=== PATIENT | male | born 1980 | race Two or more races ===

== ENCOUNTER 2018-12-15 10:20 | Emergency (ER) | payer OTHER ==
[2018-12-15 10:28] VITALS: BMI 25.7
[2018-12-15] MEDS ORDERED: DIPHTH,PERTUSS(ACELL),TET 0.5 ML DISP.SYRIN IM ONE ×2 (10:33→12:18)
[2018-12-15] MEDS ORDERED: ACETAMINOPHEN 1000 MG/100 ML VIAL (NON FORMULARY) IVPB ONE (10:33)
[2018-12-15] MEDS ORDERED: SODIUM CHLORIDE 0.9% 500 ML INFUS.BAG IV ONE (10:34)
[2018-12-15] MEDS ORDERED: ceFAZolin 2 GRAM PREMIX BAG IVPB STA (10:42)
[2018-12-15] MEDS ORDERED: morphine CARPU-JECT 4 MG/1 ML DISP.SYRIN IVPUSH ONE (10:43)
--- NOTE | 2018-12-15 11:05 | PDOC ---
History of Present Illness - General Chief Complaint: Injury Stated Complaint: LT MIDDLE FINGER INJURY Time Seen by Provider: 12/15/18 10:31 History Source: Patient Exam Limitations: No Limitations - History of Present Illness Initial Comments: 12/15/18 11:09 38YOM without PMH who notes a 400 lb crate crushed and pinned his 1st-3rd fingers on the non-dominant hand just [employer] while at work. He notes having lost less than a small cup of blood and there was no pulsatile bleeding. He notes being able to feel the tip of the fingers but the middle finger has been degloved from the bones. He additionally notes having tingling-type pain to the 1st-3rd fingers as well as bruising to the fingertips of the thumb and middle finger, and the distal forearm. Does not recall the date of his last tetanus immunization. He denies falling, hitting his head, losing consciousness, or any other injury or bodily pain. Past History - Past Medical History Allergies/Adverse Reactions: Allergies Allergy/AdvReac Type Severity Reaction Status Date / Time No Known Allergies Allergy Verified 12/15/18 10:29 COPD: No - Suicide/Smoking/Psychosocial Hx Smoking History: Never smoked Information on smoking cessation initiated: No Hx Alcohol Use: No Drug/Substance Use Hx: No Review of Systems - Review of Systems Able to Perform ROS?: Yes Comments:: 12/15/18 11:18 GEN: no fever, chills, malaise, generalized weakness, or weight change HEENT: no ear pain, sore throat, vision change, or eye pain CV: no chest pain, palpitations, lightheadedness, syncope, or edema RESP: no cough, wheezing, or SOB GI: no abdominal pain, nausea, vomiting, diarrhea, constipation, or white/black/ bloody stool : no dysuria, hematuria, incontinence, retention, bleeding, or discharge MSK: left thumb and finger injuries, no neck/back pain, muscle weakness/pain, or joint swelling/pain NEURO: finger tingling, no headache, seizure, vertigo, numbness, or focal weakness PSYCH: no substance use, no behavior change SKIN: finger injuries, no jaundice, no rash ROS otherwise negative except as noted in HPI *Physical Exam - Vital Signs Last Vital Signs Temp Pulse Resp BP Pulse Ox 98 F 90 19 129/89 100 12/15/18 10:27 12/15/18 10:27 12/15/18 10:27 12/15/18 10:27 12/15/18 10:27 - Physical Exam Comments: 12/15/18 11:19 GENERAL: well-appearing, A/Ox4, no distress, answers questions appropriately HEENT: PERRLA, EOMI, moist mucous membranes NECK/BACK: no midline ttp, no spinal stepoff or deformity, no hematoma, full ROM , neck supple CARDIOVASCULAR: regular rate/rhythm, normal S1S2, no MGR, strong peripheral pulses, capillary refill <2 seconds, extremities wwp, no edema LUNGS/RESPIRATORY: no respiratory distress, CTAB GI/ABDOMEN: symmetric [id number], normoactive BS, soft, no ttp, no midline pulsatile masses : no CVA tenderness EXTREMITIES: LUE with middle digit avulsed from bone starting at the middle aspect of the middle phalanx with bone exposed and distal phalanx dislocated from the middle phalanx completely, fingertip on this middle finger is dusky with 4 second capillary refill, subungal hematoma to this finger, developing ecchymosis to distal thumb and to wrist on the left as well b ut no wrist deformity SKIN: LUE finger/hand/wrist injuries as noted above, otherwise skin exam with skin warm and dry, no jaundice, no rash, no skin breakdown NEUROLOGICAL: GCS 15, CN II-XII grossly intact, 5/5 strength proximally and distally, no facial droop ED Treatment Course - LABORATORY CBC & Chemistry Diagram: 12/15/18 12:07 12/15/18 12:07 - RADIOLOGY Radiology Studies Ordered: Category Date Time Status FINGER(S) LEFT [RAD] Stat Radiology 12/15/18 10:33 Ordered FOREARM- LEFT [RAD] Stat Radiology 12/15/18 10:45 Ordered WRIST W/HAND-LEFT* [RAD] Stat Radiology 12/15/18 10:45 Ordered Medical Decision Making - Medical Decision Making 38YOM p/w left finger/hand injuries sustained this morning. Initial Vital Signs Temp Pulse Resp BP Pulse Ox 98 F 90 19 129/89 100 12/15/18 10:27 12/15/18 10:27 12/15/18 10:27 12/15/18 10:27 12/15/18 10:27 Exam: As noted in Physical Exam section. DDX IBNLT: W/U ordered: X-rays, labs as noted below, EKG pre-op TX ordered: IVF, Boostrix, Ancef, Ofirmev, Morphine EKG: Reviewed; results as noted in ECG Review section. Laboratory Tests 12/15/18 12/15/18 12/15/18 12:07 12:07 12:07 WBC 9.0 RBC 5.18 Hgb 15.2 Hct 44.3 MCV 85.6 MCH 29.3 MCHC 34.2 RDW 13.2 Plt Count 288 MPV 7.8 Absolute Neuts (auto) 7.4 Neutrophils % 82.5 Lymphocytes % 9.4 Monocytes % 7.4 Eosinophils % 0.3 Basophils % 0.4 Nucleated RBC % 0 PT with INR 13.30 H INR 1.13 H Sodium 140 Potassium 3.5 Chloride 105 Carbon Dioxide 29 Anion Gap 6 L BUN 11.4 Creatinine 1.1 Est GFR (CKD-EPI)AfAm 99.57 Est GFR (CKD-EPI)NonAf 85.91 Random Glucose 104 Calcium 9.2 Total Bilirubin 0.4 AST 17 ALT 20 Alkaline Phosphatase 91 Total Protein 7.8 Albumin 4.4 The Pt is unsafe for discharge at this time. They require further hospital observation, workup, and treatment. They require hand surgeon to manage this injury. 12/15/18 11:[address] Short's office (complaint evaluation supervisor for Plastic Surgery on Hand). 12/15/18 11:[address] call back from Dr[address] Short; second call placed. 12/15/18 13:[address] Short; no second on-call for hands. Reached out to Dr. Mercado who is on for general surgery (not for hand) and has overbooked schedule today. Patient accepted in transfer to [facility]. Pt to be transferred to: [facility] Pt accepted in transfer to: Dr. Gillis Patient informed and consents to transfer. Transfer paperwork completed and signed by all indicated parties. EMS crew arrives and transfers Pt to ambulance without issue. *DC/Admit/Observation/Transfer Diagnosis at time of Disposition: Degloving injury - Discharge Dispostion Disposition: TRANSFER ACUTE CARE/OTHER HOSP Condition at time of disposition: Guarded - Referrals - Patient Instructions - Post Discharge Activity - Transfer to Acute Care Facility Receiving Facility: [facility] ([place]) Accepting Physician:: Dr. Gillis
--- NOTE | 2018-12-15 11:10 | PDOC ---
Attending Attestation - Resident Resident Name: Jessy Kaur - ED Attending Attestation I have performed the following: I have examined & evaluated the patient, The case was reviewed & discussed with the resident, I agree w/resident's findings & plan, Exceptions are as noted - HPI HPI: 12/15/18 10:51 38 M with no PMH presents to ED with L hand injury. Pt states his L hand was caught underneath a 300 pound crate of mirrors that fell, pinning his fingers between the crate and the ground. Pt reports only injuring his L hand. No falls , no other injuries. - Physicial Exam PE: 12/15/18 11:10 "GENERAL: Awake, alert, and fully oriented, in no acute distress. HEAD: No signs of trauma EYES: PERRLA, EOMI, sclera anicteric, conjunctiva clear ENT: Auricles normal inspection, hearing grossly normal, nares patent, oropharynx clear without exudates. Moist mucosa NECK: Nontender, no stepoffs, Normal ROM, supple, no lymphadenopathy, JVD, or masses LUNGS: Breath sounds equal, clear to auscultation bilaterally. No wheezes, and no crackles HEART: Regular rate and rhythm, normal S1 and S2, no murmurs, rubs or gallops ABDOMEN: Soft, nontender, normoactive bowel sounds. No guarding, no rebound. No masses EXTREMITIES: + L 3rd digit partial amputation at middle phalanx with bone exposure, + tenderness to 1st and 2nd digits as well NEUROLOGICAL: Cranial nerves II through XII intact. 5/5 strength and sensation in all extremities, Normal speech, normal gait, normal cerebellar function SKIN: Warm, Dry, normal turgor, no rashes or lesions noted. - Critical Care Time Total Critical Care Time: 60 Critical Care Statement: The care of this patient involved high complexity decision making to prevent further life threatening deterioration of the patient 's condition and/or to evaluate & treat vital organ system(s) failure or risk of failure. - Medical Decision Making 12/15/18 11:11 38 M with L hand injury. 3rd digit with open displaced fracture, partially amputated. Also with likely injury to 1st and 2nd digits. - Labs - XRs - Tetanus - Abx - Hand c/s 12/15/18 11:13 Dr. Short called, message left with office 12/15/18 12:29 Dr. Short called again, message left on cell 12/15/18 12:46 Dr. Short's office reporting that he will not be available until 2PM WIll txfer at this time for hand surgery eval 12/15/18 12:54 Pt accepted for transfer to [facility] ED by Dr. Gillis
[2018-12-15] MEDS ORDERED: ACETAMINOPHEN INJECTION 100 ML IVPB ONE (12:18)
[2018-12-15] MEDS ORDERED: morphine SULFATE 4 MG/ML VIAL ONE (12:18)
[2018-12-15] MEDS ORDERED: CEFAZOLIN 1 GM/D5W 2 GM/100 ML BAG ONE (12:18)
[2018-12-15 12:28] LABS: BASO % 0.4 % (0-2.0); EOS % 0.3 % (0-4.5); HEMATOCRIT 44.3 % (35.4-49); HEMOGLOBIN 15.2 GM/dL (11.7-16.9); LYMPH % 9.4 % (8-40); MCH 29.3 pg (25.7-33.7); MCHC 34.2 g/dl (32.0-35.9); MEAN CELL VOLUME 85.6 fl (80-96); MEAN PLT VOLUME 7.8 fl (7.5-11.1); MONO % 7.4 % (3.8-10.2); NEUT % 82.5 % (42.8-82.8); RBC 5.18 M/mm3 (4.00-5.60); RDW 13.2 % (11.9-15.9)
[2018-12-15 12:50] LABS: INR 1.13 (0.83-1.09); PROTHROMBIN TIME (PATIENT) 13.3 SEC (9.7-13.0)
[2018-12-15 12:53] LABS: ALBUMIN 4.4 g/dl (3.4-5.0); BILIRUBIN,TOTAL 0.4 mg/dL (0.2-1); BLOOD UREA NITROGEN 11.4 mg/dL (7-18); CALCIUM 9.2 mg/dL (8.5-10.1); CREATININE 1.1 mg/dL (0.55-1.3); POTASSIUM 3.5 mmol/L (3.5-5.1); TOT PROT 7.8 g/dl (6.4-8.2)
[2018-12-15 12:59] LABS: PLATELET COUNT 288 K/MM3 (134-434)
[2018-12-15 13:05] VITALS: BP 127/62; PULSE 78; TEMP 98.2
--- NOTE | 2018-12-15 15:23 | EKG ---
Test Reason : Blood Pressure : / mmHG Vent. Rate : 070 BPM Atrial Rate : 070 BPM P-R Int : 134 ms QRS Dur : 076 ms QT Int : 362 ms P-R-T Axes : 060 055 032 degrees QTc Int : 390 ms NORMAL SINUS RHYTHM NONSPECIFIC ST ABNORMALITY ABNORMAL ECG NO PREVIOUS ECGS AVAILABLE Confirmed by CHRISTOPHER GARCIA MD ([id number]) on 12/15/2018 3:23:00 PM Referred By: Confirmed By:CHRISTOPHER GARCIA MD
== END 2018-12-15 14:01 | disposition short-term general hospital (02) ==
LOC: JER 10:20
PROC: 3E0234Z Introduction of Serum, Toxoid and Vaccine into Muscle, Percutaneous Approach (ICD-10-PCS; principal; 2018-12-15)
PROC: 3E033NZ Introduction of Analgesics, Hypnotics, Sedatives into Peripheral Vein, Percutaneous Approach (ICD-10-PCS; 2018-12-15)
PROC: 3E033NZ Introduction of Analgesics, Hypnotics, Sedatives into Peripheral Vein, Percutaneous Approach (ICD-10-PCS; 2018-12-15)
PROC: 3E03329 Introduction of Other Anti-infective into Peripheral Vein, Percutaneous Approach (ICD-10-PCS; 2018-12-15)
DX: S62.633B Displaced fracture of distal phalanx of left middle finger, initial encounter for open fracture (principal); S68.623A Partial traumatic transphalangeal amputation of left middle finger, initial encounter; S62.502A Fracture of unspecified phalanx of left thumb, initial encounter for closed fracture; W23.0XXA Caught, crushed, jammed, or pinched between moving objects, initial encounter; Y93.89 Activity, other specified; Y92.63 Factory as the place of occurrence of the external cause; Y99.0 Civilian activity done for income or pay
CPT/HCPCS: 36415; 73090-TC-LT-FY; 73110-TC-LT-FY; 73130-TC-LT-FY; 73140-TC-LT-FY; 80053; 85025; 85610; 86850; 86900; 86901; 90715; 93005; 93010; 99284-25; J0131